=== PATIENT | female | born 1965 | race Caucasian/White ===

== ENCOUNTER 2017-07-27 15:13 | Emergency (ER) | payer OTHER ==
[~2017-07-27] VITALS: Ht 170.2 cm; Wt 81.6 kg
[2017-07-27 15:59] VITALS: BP 171/86
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
[2017-07-27 16:02] LABS: BILIRUBIN,URINE NEGATIVE (NEG); GLUCOSE,URINE >=1000 mg/dL (NEG); NITRITE,URINE NEGATIVE (NEG); PH,URINE 5.5; PROTEIN,URINE NEGATIVE (NEG-TRACE); UROBILINOGEN,URINE 0.2 mg/dL (0.2 mg/dL)
[2017-07-27 16:11] LABS: BACTERIA,URINE FEW /HPF (0-FEW); SQUAMOUS EPITHELIAL CELL,UR FEW /LPF; WBC,URINE TNTC /HPF (0-4)
[2017-07-27 16:12] LABS: TRICHOMONAS,URINE PRESENT
[2017-07-27] MEDS ORDERED: LIDOCAINE 2% VISCOUS 15 ML SOLUTION. ONE (16:32)
[2017-07-27] MEDS ORDERED: LIDOCAINE 2% VISCOUS 15 ML SOLUTION. SWSW ONE (16:45)
[2017-07-27 16:58] LABS: CALCIUM 9.8 mg/dL (8.5-10.1); CREATININE 0.9 mg/dL (0.6-1.0); GFR 65.5; POTASSIUM 3.9 mmol/L (3.5-5.1)
[2017-07-27] MEDS ORDERED: metroNIDAZOLE 500 MG TABLET PO ONE (18:15)
[2017-07-27] MEDS ORDERED: AZITHROMYCIN 250 MG TABLET. PO ONE (18:15)
[2017-07-27] MEDS ORDERED: cefTRIAXone IM 250 MG VIAL IM ONE (18:15)
[2017-07-27] MEDS ORDERED: METR500T PO (18:51)
[2017-07-27] MEDS ORDERED: CIPR500T94 PO (18:51)
== END 2017-07-27 19:05 | disposition home or self-care (01) ==
LOC: ER 15:13
DX: A59.01 Trichomonal vulvovaginitis (principal); N76.0 Acute vaginitis; B96.89 Other specified bacterial agents as the cause of diseases classified elsewhere; N39.0 Urinary tract infection, site not specified; Z88.0 Allergy status to penicillin; Z88.2 Allergy status to sulfonamides; Z88.5 Allergy status to narcotic agent
CPT/HCPCS: 36415; 80048; 81001; 87086; 87491; 87591; 96372; 99284; J0696; Q0111; Q0144